=== PATIENT | female | born 1935 | race Asian ===

== ENCOUNTER 2018-04-16 05:31 | Day surgery (SDC) | payer OTHER ==
[2018-04-05 14:07] VITALS: BMI 24.0
[2018-04-16] MEDS ORDERED: DEXAMETHASONE SOD PHOSPHATE 4 MG/1 ML VIAL ONE (08:29)
[2018-04-16] MEDS ORDERED: LIDOCAINE HCL/PF 2% SDV 5ML VIAL ONE (08:29)
[2018-04-16] MEDS ORDERED: PROPOFOL 20 ML ONE ×2 (08:36→09:06)
--- NOTE | 2018-04-16 08:44 | HP ---
History & Physical Update - History History: No Change - Physical Physical: No Change - Assessment Assessment: No Change - Plan Plan: No Change
[2018-04-16] MEDS ORDERED: LIDOCAINE HCL 1%, 10 MG/ML (20ML VIAL) NR ONE (09:00)
[2018-04-16] MEDS ORDERED: KETOROLAC TROMETHAMINE 30 MG/1 ML VIAL ONE (09:04)
[2018-04-16] MEDS ORDERED: LIDOCAINE HCL 1%, 10 MG/ML (20ML VIAL) ONE (09:05)
[2018-04-16 09:54] VITALS: TEMP 97.8
--- NOTE | 2018-04-16 10:01 | OP ---
DATE OF OPERATION: 04/16/2018 PREOPERATIVE DIAGNOSIS: Left breast ductal carcinoma in situ. POSTOPERATIVE DIAGNOSIS: Left breast ductal carcinoma in situ. PROCEDURE: Left breast lumpectomy. SURGEON: Lovely Aguilar MD ANESTHESIA: Local and IV sedation. ESTIMATED BLOOD LOSS: Minimal. COMPLICATIONS: None. This was a sterile procedure. INDICATIONS: Patient presented with a palpable mass in the area of a prior lumpectomy for invasive carcinoma. I did a core biopsy that showed high-grade DCIS. My recommendation was a lumpectomy. The procedure was discussed with all the questions answered. PROCEDURE IN DETAIL: Patient was brought to [facility] in [place], taken into the operating room, and after IV sedation, the left breast was prepped and draped in the usual sterile fashion. The area in the upper inner left breast in the area of the lump was anesthetized with 1% lidocaine without epinephrine. An incision was made to include the ellipse of skin overlying the tumor, which was just medial to the prior lumpectomy scar. The palpable mass was then excised en bloc and tagged with a long stitch lateral and a short stitch superior. Grossly, I felt I had adequate margins. Therefore, once hemostasis was assured, the parenchyma was approximated with interrupted 2-0 Vicryl, skin approximated with interrupted 3-0 Vicryl and running 4-0 Prolene. Sterile dressing with Tegaderm, 4x4s were applied. Posteriorly, I did go all the way to the muscle and took a little sliver of muscle directly under the tumor for better margins. Once the incision was closed, it was covered Tegaderm and 4x4. She tolerated the procedure well, was taken to recovery in good condition. Ming [id number]
[2018-04-16 11:30] VITALS: BP 147/74; PULSE 60
--- NOTE | 2018-04-20 15:03 | PATH ---
Surgical Pathology Report Patient Name: EMMY STEWART [facility] Rec. #: [id number] /Age/Gender: 1935 (Age: 82) / F Account: [id number] Location: AMBULATORY SURG Taken: 04/16/2018 Received: 04/16/2018 Reported: 04/20/2018 Physicians: Lovely Aguilar M.D. Specimen(s) Received LEFT BREAST LUMPECTOMY Clinical History Left breast ductal carcinoma Final Diagnosis BREAST, LEFT, LUMPECTOMY: INVASIVE DUCTAL CARCINOMA, MODERATELY DIFFERENTIATED (TUBULE SCORE: 2/3, NUCLEAR GRADE: 2/3, MITOTIC SCORE: 2/3; TOTAL JAMESON SCORE: 6/9). INVASIVE CARCINOMA MEASURES 1.3 CM IN GREATEST MICROSCOPIC DIMENSION. FOCAL DUCTAL CARCINOMA IN SITU (DCIS), CRIBRIFORM TYPE, INTERMEDIATE NUCLEAR GRADE. LYMPHOVASCULAR INVASION IDENTIFIED. PERINEURAL INVASION IDENTIFIED. SURGICAL MARGINS ARE UNINVOLVED BY CARCINOMA; INVASIVE CARCINOMA IS 2 MM FROM CLOSEST DEEP AND INFERIOR MARGINS; DCIS IS 3 MM FROM CLOSEST DEEP MARGIN. SKELETAL MUSCLE INVOLVED BY INVASIVE CARCINOMA. SKIN UNINVOLVED BY CARCINOMA. PRIOR BIOPSY SITE CHANGES ARE PRESENT. PATHOLOGIC STAGE (pTNM): pT1c pNx. SEE INVASIVE CARCINOMA CASE SUMMARY BELOW. Comments Breast Invasive Carcinoma: Surgical Pathology Case Summary (Based on AJCC TNM 8 th edition) Procedure _X_ Excision (less than total mastectomy) Specimen Laterality _X_ Left Tumor Size _X_ Greatest dimension of largest invasive focus >1 mm (specify exact measurement) (millimeters): _13__ mm Histologic Type _X_ Invasive carcinoma of no special type (ductal, not otherwise specified) Histologic Grade ([place] Histologic Score) Glandular (Acinar)/Tubular Differentiation _X_ Score 2 (10-75% of tumor area forming glandular/tubular structures) Nuclear Pleomorphism _X_ Score 2 Mitotic Rate _X_ Score 2 Overall Grade _X_ Grade 2 (scores of 6) Tumor Focality _X_ Single focus of invasive carcinoma Ductal Carcinoma In Situ (DCIS) _X_ DCIS is present in specimen _X_ Negative for extensive intraductal component (EIC) Margins Invasive Carcinoma Margins _X_ Uninvolved by invasive carcinoma Distance from closest margin (millimeters): 2 mm Closest margin: Deep and Inferior DCIS Margins _X_ Uninvolved by DCIS Distance from closest margin (millimeters): _3_ mm Closest margin: Deep Regional Lymph Nodes _X_ No lymph nodes submitted or found Treatment Effect _X_ No known presurgical therapy Lymphovascular Invasion _X_ Present Skeletal Muscle _X_ Carcinoma invades skeletal muscle Pathologic Stage Classification (pTNM, AJCC 8th Edition) Primary Tumor (Invasive Carcinoma) (pT) _X_ pT1c: Tumor >10 mm but =20 mm in greatest dimension Category (pN) _X__ pNX: Regional lymph nodes cannot be assessed Biomarker Studies Results of ER and NV studies performed on this specimen (block#2) at [facility] are as follows: ER (clone [id number] mouse monoclonal antibody by [employer]): >95% nuclear staining with strong intensity (Positive). NV (clone16 mouse monoclonal antibody by [employer]): ~10-15% nuclear staining with moderate intensity (Positive). Results Her2 and Ki67 studies will be reported separately in an addendum. Positive and negative controls (internal if applicable) show appropriate results. Formalin fixation and cold ischemic times are within current ASCO/CAP recommendations for ER, NV and Her2 testing. MLSZ/04/20/2018 Electronically Signed Queta Baez M.D. Addendum Reported: 04/21/2018 Addendum Diagnosis Results of Her2 (IHC) & Ki-67 studies performed on block "2" at [place], [place] ([id number]) are as follows: Her2 IHC (EP3 from [employer], formerly known as [id number], using [employer] Polymer Refine detection kit): 1+ (Negative). Ki-67: 20% (Intermediate proliferative index). Positive and negative controls (internal if applicable) show appropriate results. Queta Baez M.D. Gross Description Received in formalin, labeled "left breast lumpectomy," is a 4.2 x 3.5 x 2.2 cm. case-yellow, irregular, portion of fibroadipose tissue with a needle localization wire present. There is a short suture marking the superior aspect and a long suture marking the lateral aspect, per the surgeon. The anterior surface displays a 4.0 x 1.9 cm, case, elliptical, unremarkable portion of skin. The specimen is inked as follows: Superior blue; inferior green; lateral red; medial yellow; deep black. The specimen is serially sectioned from medial to lateral. Sectioning reveals a 1.3 x 1.0 x 1.0 cm case, indurated mass focally abutting the deep margin. The mass is 0.1 cm from the inferior margin. The remaining margins are clear of the mass. Washer Off sections are submitted in 6 cassettes as follows: 1-full face section of mass with inferior and deep margins; 2-additional full face section of mass with inferior and deep margins; 3-superior margin; 4-skin; 5-lateral margin; 6-medial margin. Total formalin fixation time: Approximately 6 hours 04/16/201804/16/2018
== END 2018-04-16 11:36 | disposition home or self-care (01) ==
LOC: JASUSAT 05:31
PROVIDERS: ATTEND Surgery
PROC: 0HBU0ZX Excision of Left Breast, Open Approach, Diagnostic (ICD-10-PCS; principal; 2018-04-16 09:00)
DX: C50.912 Malignant neoplasm of unspecified site of left female breast (principal)
CPT/HCPCS: 88307-TC; 88342-TC; 94760

== ENCOUNTER 2018-10-21 13:43 | Emergency (ER) | payer OTHER ==
[2018-10-21 13:53] VITALS: BP 124/80; PULSE 63; TEMP 97.9; BMI 24.0
--- NOTE | 2018-10-21 14:11 | PDOC ---
History of Present Illness - General Chief Complaint: Injury Stated Complaint: BACK PAIN Time Seen by Provider: 10/21/18 14:10 - History of Present Illness Initial Comments: 83 year old female with PMH of HTN and HLD presenting from home via EMS because of right hip pain after fall 24 hours prior. States that she tripped over the last step in her main set of stairs in her house and fell sideways onto her left hip but feels as if she twisted her right hip. She went to bed without too much pain last night but woke up this morning with significant pain with movement at certain angles. She tried bengay with minimal relief. She did not try Tylenol or Motrin. She is still able to walk but is afraid to move the wrong way and exacerbate the symptoms. Denies LOC, head trauma, neck pain or other symptoms. 10/21/18 15:43 Past History - Past Medical History Allergies/Adverse Reactions: Allergies Allergy/AdvReac Type Severity Reaction Status Date / Time levofloxacin Allergy Severe Rash,COGNITIVE Verified 04/05/18 14:08 DIFFICULTY Penicillins Allergy Severe Difficulty Verified 01/08/16 17:48 Breathing clindamycin Allergy Intermediate Hives Verified 01/08/16 17:48 erythromycin base Allergy Intermediate Verified 01/08/16 17:48 [Erythromycin Base] oxycodone [Oxycodone] AdvReac Mild Itching Verified 01/08/16 17:48 oxycodone HCl AdvReac Mild Itching Verified 01/08/16 17:48 [From OxyContin] erythromycin Allergy Intermediate Hives Uncoded 01/08/16 17:48 Home Medications: Ambulatory Orders Simvastatin [Zocor -] 10 mg PO HS 11/08/12 Losartan 50Mg/Hctz 12.5MG [Hyzaar -] 1 tab PO DAILY #0 tablet 10/08/13 Aspirin [ASA -] 81 mg PO DAILY 04/05/18 Ergocalciferol (Vitamin D2) [Vitamin D2] 2,000 unit PO DAILY 04/05/18 Anemia: No Asthma: No Cancer: Yes (BREAST) Cardiac Disorders: No (LEFT LUMPECTOMY) CVA: No COPD: No CHF: No Dementia: No Diabetes: No GI Disorders: No Disorders: No HTN: Yes Hypercholesterolemia: Yes Liver Disease: No Seizures: No Thyroid Disease: Yes ("CYST ON THRYROID" MONITORING) - Surgical History Orthopedic Surgery: Yes (PARTIAL KNEE REPLACEMENT 10/2013) - Immunization History Immunization Up to Date: Yes - Suicide/Smoking/Psychosocial Hx Smoking Status: No Smoking History: Unknown if ever smoked Years of Tobacco Use: 0 Have you smoked in the past 12 months: No Number of Cigarettes Smoked Daily: 0 Cigars Per Day: 0 Information on smoking cessation initiated: No Hx Alcohol Use: No Drug/Substance Use Hx: No Substance Use Type: None, Alcohol Hx Substance Use Treatment: No Review of Systems - Review of Systems Constitutional: No: Chills, Diaphoresis, Fever HEENTM: No: Eye Pain, Blurred Vision, Tearing Respiratory: No: Cough, Orthopnea, Shortness of Breath, Productive cough Cardiac (ROS): No: Chest Pain, Edema, Irregular Heart Rate ABD/GI: No: Diarrhea, Nausea, Vomiting : No: Burning, Dysuria, Discharge Integumentary: No: Bruising, Erythema, Flushing Neurological: No: Headache, Numbness Psychiatric: No: Anxiety, Depression Hematologic/Lymphatic: No: Anemia, Blood Clots *Physical Exam - Vital Signs Last Vital Signs Temp Pulse Resp BP Pulse Ox 97.9 F 63 16 124/80 97 10/21/18 13:51 10/21/18 13:51 10/21/18 13:51 10/21/18 13:51 10/21/18 13:51 - Physical Exam General Appearance: Yes: Nourished, Appropriately Dressed. No: Apparent Distress HEENT: positive: EOMI, JUNAID, Normal ENT Inspection, Normal Voice Neck: positive: Trachea midline, Normal Thyroid, Supple. negative: Tender, Rigid Respiratory/Chest: positive: Lungs Clear, Normal Breath Sounds. negative: Chest Tender, Respiratory Distress, Accessory Muscle Use Cardiovascular: positive: Regular Rhythm, Regular Rate Gastrointestinal/Abdominal: positive: Normal Bowel Sounds, Flat, Soft. negative : Tender Lymphatic: negative: Adenopathy, Tenderness Musculoskeletal: positive: Normal Inspection. negative: Decreased Range of Motion Extremity: positive: Normal Capillary Refill, Normal Inspection, Normal Range of Motion. negative: Tender Integumentary: positive: Normal Color, Dry, Warm Neurologic: positive: Fully Oriented, Alert, Normal Mood/Affect, Normal Response , Motor Strength 5/5 Medical Decision Making - Medical Decision Making 83 year old female with right sided hip pain after a fall 24 hours prior. Able to ambulate without assistance. No bruising, deformities or other symptoms. XRs negative for fracture. Pain improved with Tylenol. We feel that this patient will DEFINITELY benefit from a home safety evaluation particularly around her stairs. Will DC with return precautions and follow up instructions + pending VNS home evaluation. 10/21/18 15:51 *DC/Admit/Observation/Transfer Diagnosis at time of Disposition: Hip pain Qualifiers: Laterality: right Qualified Code(s): M25.551 - Pain in right hip - Discharge Dispostion Disposition: HOME Condition at time of disposition: Improved Decision to Admit order: No - Referrals Referrals: Brannon Simmons [Non Staff, Medical] - - Patient Instructions Printed Discharge Instructions: How to Prevent Falls Additional Instructions: Please use Tylenol for your hip pain. You have no fracture. Please see Dr. Simmons next week. Please return to the ED if you have any new or worsening symptoms. You will have an agency come to your home to evaluate your stairs and ability to move around your house. - Post Discharge Activity
[2018-10-21] MEDS ORDERED: ACETAMINOPHEN 500 MG TABLET (FP) PO ONE (14:37)
[2018-10-21] MEDS ORDERED: ACETAMINOPHEN 325 MG TABLET (FP) PO ONE (15:28)
[2018-10-21] MEDS ORDERED: ACETAMINOPHEN 325 MG TABLET (FP) ONE (15:29)
--- NOTE | 2018-10-21 17:21 | PDOC ---
Documentation entered by Tania Smith SCRIBE, acting as scribe for Dudley Charlton MD. Dudley Charlton MD: This documentation has been prepared by the Luis braden Amanda, SCRIBE, under my direction and personally reviewed by me in its entirety. I confirm that the documentation accurately reflects all work, treatment, procedures, and medical decision making performed by me. Attending Attestation - Resident Resident Name: Tricia Bullardrobinshraddha - ED Attending Attestation I have performed the following: I have examined & evaluated the patient, The case was reviewed & discussed with the resident, I agree w/resident's findings & plan, Exceptions are as noted - HPI HPI: 10/21/18 14:46 The patient is a 83 year old female, with a significant past medical history of hypertension and hyperlipidemia, who presents to the emergency department with right posterior hip pain s/p fall yesterday afternoon. She states she was walking down her stairs and misjudges the distance from the last step to the base of the staircase. She denies any head trauma. She was ambulatory s/p fall. She states she woke up with pain to her right hip. She denies numbness or tingling to the extramity. The patient denies chest pain, shortness of breath, headache and dizziness. The patient denies fever, chills, nausea, vomit, diarrhea and constipation. The patient denies dysuria, frequency, urgency and hematuria. - Physicial Exam PE: 10/21/18 14:46 GENERAL: Awake, alert, and fully oriented, in no acute distress HEAD: No signs of trauma EYES: PERRLA, EOMI, sclera anicteric, conjunctiva clear NECK: Normal ROM, supple, no lymphadenopathy, JVD, or masses ABDOMEN: Soft, nontender, normoactive bowel sounds. No guarding, no rebound. No masses EXTREMITIES: (+) mild right hip tenderness. Mild left lumbar paraspinal tenderness. No lumbar or thoracic spine tenderness. No flank ecchymosis. Normal range of motion, no edema. No clubbing or cyanosis. No cords, erythema, or tenderness NEUROLOGICAL: Cranial nerves II-XII intact. Normal speech, normal gait. Sensation intact in upper and lower extremities. 5/5 motor strength in upper and lower extremities. No pronator drift. Finger to nose intact. Rapid alternations intact. SKIN: Warm, Dry, normal turgor, no rashes or lesions noted. - Medical Decision Making 10/21/18 15:00 A portion of this note was documented by scribe services under my direction. I have reviewed the details of the note, within reason, and agree with the documentation with the following case summary and management plan written by me. Patient treated in the ED. Nursing notes are reviewed and incorporated into the medical decision-making. Vital signs reviewed. Peripheral IV access obtained by the nurse, laboratory studies are drawn and sent, reviewed and interpreted by myself. Vital Signs Temp Pulse Resp BP Pulse Ox 97.9 F 63 16 124/80 97 10/21/18 13:51 10/21/18 13:51 10/21/18 13:51 10/21/18 13:51 10/21/18 13:51 83-year-old female with past mental history of hypertension, hyperlipidemia presents with mechanical fall. Patient was walking downstairs which she took a misstep and fell on her right hip. She reported that she was able to get up but reports some mild pain. This morning, she woke up and had some right lower back stiffness and pain but denied any bruising, rashes, abrasions or lacerations. Because the pain was persistent came to the ER. She denies any head trauma or loss of consciousness. I suspect patient likely has lower back spasm. I am not concerned for lumbar spine or thoracic spine fractures. We'll obtain a pelvis and hip x-ray to evaluate for potential occult fracture. However, given she is negative, the patient to be discharged home with supportive care. We'll consult case management and school social worker in terms of home safety evaluation given that she took a misstep and fell and lives by herself. 10/21/18 16:07 Radiograph reviewed, pending official radiology read. No fracture. Pt was seen by school social worker. They're going to send VNS when pt goes home.
== END 2018-10-21 16:30 | disposition home or self-care (01) ==
LOC: JER 13:43
DX: M25.551 Pain in right hip (principal); W10.8XXA Fall (on) (from) other stairs and steps, initial encounter; Y93.89 Activity, other specified; Y92.018 Other place in single-family (private) house as the place of occurrence of the external cause; Y99.8 Other external cause status; I10 Essential (primary) hypertension; E78.00 Pure hypercholesterolemia, unspecified; Z88.0 Allergy status to penicillin; Z88.3 Allergy status to other anti-infective agents; Z88.8 Allergy status to other drugs, medicaments and biological substances
CPT/HCPCS: 73523-TC-FY; 99281-25

== ENCOUNTER 2019-07-13 05:32 | Day surgery (SDC) | payer OTHER ==
[2019-07-12 13:22] VITALS: BMI 23.6
[2019-07-13 11:33] LABS: EOS % 0.3 % (0-4.5); HEMATOCRIT 39.3 % (32.4-45.2); HEMOGLOBIN 13.3 GM/dL (10.7-15.3); LYMPH % 21.3 % (8-40); MCH 32.5 pg (25.7-33.7); MCHC 33.9 g/dl (32.0-36.0); MEAN CELL VOLUME 95.9 fl (80-96); MEAN PLT VOLUME 7.4 fl (7.5-11.1); MONO % 8.3 % (3.8-10.2); NEUT % 69.1 % (42.8-82.8); PLATELET COUNT 209 K/MM3 (134-434); RDW 13.3 % (11.6-15.6); WHITE BLOOD COUNT 4.3 K/mm3 (4.0-10.0)
[2019-07-13 11:49] LABS: INR 0.95 (0.83-1.09); PROTHROMBIN TIME (PATIENT) 11.2 SEC (9.7-13.0)
[2019-07-13 11:52] LABS: ACTIVATED PTT 30.7 SECONDS (25.2-36.5)
[2019-07-13 12:09] LABS: ALBUMIN 4.2 g/dl (3.4-5.0); BILIRUBIN,TOTAL 0.9 mg/dL (0.2-1); BLOOD UREA NITROGEN 19.8 mg/dL (7-18); CREATININE 0.7 mg/dL (0.55-1.3); MAGNESIUM 2.5 mg/dL (1.8-2.4); PREALBUMIN 23.3 mg/dl (20-40); TOT PROT 6.8 g/dl (6.4-8.2)
[2019-07-13] MEDS ORDERED: [UNRECOGNIZED DRUG - OTHER] IVPB ONE (16:00)
[2019-07-13] MEDS ORDERED: ONDANSETRON IVPB ONE (16:00)
[2019-07-13] MEDS ORDERED: SODIUM CHLORIDE 250 ML IV ONE (16:00)
[2019-07-13] MEDS ORDERED: DEXAMETHASONE SODIUM PHOSPHATE IVPB ONE (16:00)
--- NOTE | 2019-07-13 16:07 | HP ---
Admitting History and Physical - Past Medical History ...: No - Smoking History Smoking history: Unknown if ever smoked Have you smoked in the past 12 months: No Aproximately how many cigarettes per day: 0 - Alcohol/Substance Use Hx Alcohol Use: No Home Medications - Allergies Allergies/Adverse Reactions: Allergies Allergy/AdvReac Type Severity Reaction Status Date / Time anastrozole Allergy Severe Verified 07/12/19 14:14 exemestane [From Aromasin] Allergy Severe Verified 07/12/19 14:12 levofloxacin Allergy Severe Rash,COGNITIVE Verified 07/12/19 13:22 DIFFICULTY Penicillins Allergy Severe Difficulty Verified 07/12/19 13:22 Breathing clindamycin Allergy Intermediate Hives Verified 07/12/19 13:22 erythromycin base Allergy Intermediate Verified 07/12/19 13:22 [Erythromycin Base] oxycodone [Oxycodone] AdvReac Mild Itching Verified 07/12/19 13:22 oxycodone HCl AdvReac Mild Itching Verified 07/12/19 13:22 [From OxyContin] erythromycin Allergy Intermediate Hives Uncoded 07/12/19 13:22 - Home Medications Home Medications: Ambulatory Orders Simvastatin [Zocor -] 10 mg PO HS 11/08/12 Losartan 50Mg/Hctz 12.5MG [Hyzaar -] 1 tab PO DAILY #0 tablet 10/08/13 Ergocalciferol (Vitamin D2) [Vitamin D2] 2,000 unit PO DAILY 04/05/18 Famotidine [Pepcid -] 20 mg PO DAILY 07/12/19 Physical Examination Vital Signs: Vital Signs Temperature 98.2 F 07/13/19 11:43 Pulse Rate 59 L 07/13/19 13:46 Respiratory Rate 16 07/13/19 13:46 Blood Pressure 144/64 07/13/19 13:46 O2 Sat by Pulse Oximetry (%) 100 07/13/19 13:46 Labs: CBC, BMP 07/13/19 11:01 07/13/19 11:01 Assessment/Plan Patient seen and examined Admitted for cycle #1 of FOLFOX Gastric ca - for neoadjuvant therapy [facility] -- 2013- left lumpectomy T1b, Nx, Mx ER+,[place]+-- no hormonees, No RT, No chemotherpy 2017--left breast lumpectomy- T1c,Nx ER+, [place]+, skeletal muscle involved - treated with RT --completed 06/22 - trial of both arimidex and exemestance - both with intolerance and patient declined further hormonal therapy trial 2018-- gastric ca - laparoscopic assessment - recommendation - neoadjuvant therapy prior to surgery HBP, HPL,Thyroid nodules, lung nodules, o.a., gallstones Meds Vitamin D3, Hyzaar( 50/12.5) pepcid, zocor-10 mg Allergies- Penicillin, Clindamycin,arimidex, exemestane Last Vital Signs Temp Pulse Resp BP Pulse Ox 98.2 F 59 L 16 144/64 100 07/13/19 11:43 07/13/19 13:46 07/13/19 13:46 07/13/19 13:46 07/13/19 13:46 HEENT: JAMEL, EOM Intact Oropharynx: No thrush, No mucositis Neck: Supple Nodes: Without adenopathy Breasts:s/p left breast lumpectomy Cor: RSR, No murmurs, No gallops Lungs: Clear to P&A Abd: Soft, Normal bowel sounds, No organomegaly Ext:No significant edema Skin: No rashes, Integument intact CBC, BMP 07/13/19 11:01 07/13/19 11:01 Impression: Gastric ca Neoadjuvant therapy with FOLFOX.
[2019-07-13] MEDS ORDERED: DEXTROSE 5% IV ONE (16:30)
[2019-07-13] MEDS ORDERED: OXALIPLATIN IV ONE (16:30)
[2019-07-13] MEDS ORDERED: WATER IV ONE (16:30)
[2019-07-13] MEDS ORDERED: DEXTROSE 5% IVPB ONE (16:30)
[2019-07-13] MEDS ORDERED: WATER IVPB ONE (16:30)
[2019-07-13] MEDS ORDERED: LEUCOVORIN IVPB ONE (16:30)
[2019-07-13 17:13] VITALS: TEMP 98.3
[2019-07-13] MEDS ORDERED: FLUOROURACIL 2,500 MG/50 ML VIAL IVPUSH ONE (18:30)
[2019-07-13] MEDS ORDERED: FLUOROURACIL CP ONE (18:45)
[2019-07-13] MEDS ORDERED: SODIUM CHLORIDE CP ONE (18:45)
[2019-07-13 19:34] VITALS: BP 135/75; PULSE 68
== END 2019-07-13 07:45 | disposition home or self-care (01) ==
LOC: JRADIR 05:32 → J7W 14:49
PROVIDERS: ATTEND Internal Medicine Hematology & Oncology
PROC: 3E04305 Introduction of Other Antineoplastic into Central Vein, Percutaneous Approach (ICD-10-PCS; principal; 2019-07-13)
PROC: 0JH63XZ Insertion of Tunneled Vascular Access Device into Chest Subcutaneous Tissue and Fascia, Percutaneous Approach (ICD-10-PCS; 2019-07-13)
PROC: 02HV33Z Insertion of Infusion Device into Superior Vena Cava, Percutaneous Approach (ICD-10-PCS; 2019-07-13)
PROC: B518ZZA Fluoroscopy of Superior Vena Cava, Guidance (ICD-10-PCS; 2019-07-13)
DX: Z51.11 Encounter for antineoplastic chemotherapy (principal); C16.9 Malignant neoplasm of stomach, unspecified
CPT/HCPCS: 36561; 77001; 96361; 96366; 96367; 96411; 96413; 96415; 96416; C1751; 36415; 80053; 83735; 84134; 85025; 85610; 85730; C1788; G0498; J9263

== ENCOUNTER 2019-07-15 05:39 | Day surgery (SDC) | payer OTHER ==
[~2019-07-15 05:39] MED LIST: DEXAMETHASONE SODIUM PHOSPHATE IVPB ONE; DEXTROSE 5% IV ONE; DEXTROSE 5% IVPB ONE; FLUOROURACIL 2,500 MG/50 ML VIAL IVPUSH ONE; FLUOROURACIL CP ONE; LEUCOVORIN IVPB ONE; ONDANSETRON IVPB ONE; OXALIPLATIN IV ONE; SODIUM CHLORIDE 250 ML IV ONE; SODIUM CHLORIDE CP ONE; WATER IV ONE; WATER IVPB ONE; [UNRECOGNIZED DRUG - OTHER] IVPB ONE
[2019-07-15 18:12] VITALS: BP 126/74; PULSE 63; TEMP 97.8
[2019-07-15] MEDS ORDERED: PORTA CATH FLUSH 10 ML IVPUSH ONE (18:15)
== END 2019-07-15 17:10 | disposition home or self-care (01) ==
LOC: JONCNONCHE 05:39 → J7W 17:55
PROVIDERS: ATTEND Internal Medicine Hematology & Oncology
DX: Z53.8 Procedure and treatment not carried out for other reasons (principal)

== ENCOUNTER 2019-07-27 05:28 | Day surgery (SDC) | payer OTHER ==
[2019-07-27] MEDS ORDERED: DEXAMETHASONE SODIUM PHOSPHATE 8 MG in SODIUM CHLORIDE 50 ML IVPB ONE (09:30)
[2019-07-27] MEDS ORDERED: WATER IVPB ONE (10:00)
[2019-07-27] MEDS ORDERED: DEXTROSE 5% IVPB ONE (10:00)
[2019-07-27] MEDS ORDERED: LEUCOVORIN IVPB ONE (10:00)
[2019-07-27] MEDS ORDERED: OXALIPLATIN 100 MG, OXALIPLATIN 30 MG in DEXTROSE 5%-WATER - 500 ML IV ONE (10:00)
[2019-07-27 11:59] LABS: BASO % 0.6 % (0-2.0); EOS % 0.1 % (0-4.5); HEMATOCRIT 32.4 % (32.4-45.2); HEMOGLOBIN 11.5 GM/dL (10.7-15.3); MCH 32.7 pg (25.7-33.7); MCHC 35.5 g/dl (32.0-36.0); MEAN CELL VOLUME 92.1 fl (80-96); MEAN PLT VOLUME 6.9 fl (7.5-11.1); MONO % 23.2 % (3.8-10.2); NEUT % 54.1 % (42.8-82.8); PLATELET COUNT 153 K/MM3 (134-434); RBC 3.52 M/mm3 (3.60-5.2); RDW 13.1 % (11.6-15.6); WHITE BLOOD COUNT 2.7 K/mm3 (4.0-10.0)
[2019-07-27] MEDS ORDERED: SODIUM CHLORIDE 250 ML IV ONE (12:00)
[2019-07-27] MEDS ORDERED: FLUOROURACIL 500 MG/10 ML VIAL IVPUSH ONE (12:00)
[2019-07-27] MEDS ORDERED: SODIUM CHLORIDE IV ONE (12:15)
[2019-07-27] MEDS ORDERED: FLUOROURACIL IV ONE (12:15)
[2019-07-27 12:36] LABS: ALBUMIN 3.4 g/dl (3.4-5.0); BILIRUBIN,TOTAL 1.5 mg/dL (0.2-1); CALCIUM 8.2 mg/dL (8.5-10.1); CREATININE 0.7 mg/dL (0.55-1.3); MAGNESIUM 2.1 mg/dL (1.8-2.4); POTASSIUM 3.6 mmol/L (3.5-5.1); TOT PROT 6.1 g/dl (6.4-8.2)
[2019-07-27] MEDS ORDERED: ONDANSETRON 4 MG/2 ML VIAL ONE (13:41)
[2019-07-27] MEDS ORDERED: ONDANSETRON 4 MG/2 ML VIAL IVPB ONE (13:45)
[2019-07-27 13:52] LABS: ANISOCYTOSIS 0; MACROCYTOSIS 0; PLATELET ESTIMATE NORMAL
[2019-07-27 14:00] LABS: BILIRUBIN,DIRECT 0.3 mg/dL (0.0-0.2)
[2019-07-27] MEDS ORDERED: PORTA CATH FLUSH 10 ML IVPUSH ONE (14:56)
[2019-07-27 17:41] VITALS: BP 128/64; PULSE 80
[2019-07-27 17:42] VITALS: TEMP 98
== END 2019-07-27 17:05 | disposition home or self-care (01) ==
LOC: JONCCHEMO 05:28 → J7W 10:45 → JONCCHEMO 17:05
PROVIDERS: ATTEND Internal Medicine Hematology & Oncology
DX: Z51.11 Encounter for antineoplastic chemotherapy (principal); C50.912 Malignant neoplasm of unspecified site of left female breast; C78.89 Secondary malignant neoplasm of other digestive organs
CPT/HCPCS: 36415; 80053; 80076; 83735; 85025; 96361; 96367; 96375; 96411; 96413; 96415; G0498; J9190; J9263

== ENCOUNTER 2019-07-29 07:04 | Day surgery (SDC) | payer OTHER ==
[2019-07-29] MEDS ORDERED: DEXAMETHASONE SOD PHOSPHATE 10 MG/1 ML VIAL ONE (14:40)
[2019-07-29] MEDS ORDERED: ONDANSETRON 4 MG/2 ML VIAL ONE (14:40)
[2019-07-29] MEDS ORDERED: DEXAMETHASONE SOD PHOSPHATE 4 MG/1 ML VIAL IVPB ONE (14:45)
[2019-07-29] MEDS ORDERED: ONDANSETRON 4 MG/2 ML VIAL IVPB ONE (14:45)
[2019-07-29] MEDS ORDERED: SODIUM CHLORIDE 0.45% IVPB SCH (15:00)
[2019-07-29] MEDS ORDERED: POTASSIUM CHLORIDE IVPB SCH (15:00)
[2019-07-29 16:12] LABS: BASO % 0.7 % (0-2.0); EOS % 4.2 % (0-4.5); HEMATOCRIT 31.6 % (32.4-45.2); HEMOGLOBIN 11.3 GM/dL (10.7-15.3); LYMPH % 31.3 % (8-40); MCH 32.9 pg (25.7-33.7); MCHC 35.7 g/dl (32.0-36.0); MEAN CELL VOLUME 92.1 fl (80-96); MEAN PLT VOLUME 7.2 fl (7.5-11.1); MONO % 12.2 % (3.8-10.2); NEUT % 51.6 % (42.8-82.8); PLATELET COUNT 202 K/MM3 (134-434); RBC 3.43 M/mm3 (3.60-5.2); RDW 13.2 % (11.6-15.6)
[2019-07-29 16:17] LABS: WHITE BLOOD COUNT 1.2 K/mm3 (4.0-10.0)
[2019-07-29 16:26] VITALS: PULSE 62; TEMP 98.7
[2019-07-29] MEDS ORDERED: PORTA CATH FLUSH 10 ML IVPUSH ONE (16:32)
[2019-07-29 16:33] LABS: ALBUMIN 3.1 g/dl (3.4-5.0); BLOOD UREA NITROGEN 18.8 mg/dL (7-18); CALCIUM 8.1 mg/dL (8.5-10.1); CREATININE 0.9 mg/dL (0.55-1.3); MAGNESIUM 2.2 mg/dL (1.8-2.4); POTASSIUM 3.3 mmol/L (3.5-5.1)
[2019-07-29] MEDS ORDERED: POTASSIUM CHLORIDE TABS 20 MEQ TABLET.ER (FP) PO ONE (17:00)
[2019-07-29 17:14] LABS: PLATELET ESTIMATE ADEQUATE
[2019-07-29] MEDS ORDERED: TBO-FILGRASTIM 300 MCG/0.5 ML DISP.SYRINGE SQ ONE (17:15)
[2019-07-29 17:35] VITALS: BP 141/55
== END 2019-07-29 17:56 | disposition home or self-care (01) ==
LOC: JONCNONCHE 07:04 → JONCCHEMO 07:04 → J7W 14:16 → JONCNONCHE 17:56
PROVIDERS: ATTEND Internal Medicine Hematology & Oncology
PROC: 3E043GC Introduction of Other Therapeutic Substance into Central Vein, Percutaneous Approach (ICD-10-PCS; principal; 2019-07-29)
DX: C50.912 Malignant neoplasm of unspecified site of left female breast (principal); C78.89 Secondary malignant neoplasm of other digestive organs; Z76.89 Persons encountering health services in other specified circumstances
CPT/HCPCS: 36415; 80053; 83735; 85025; 96361; 96365; 96372; J1100; J1447